=== PATIENT | male | born 1965 | race Caucasian/White ===

== ENCOUNTER 2024-10-17 11:56 | Emergency (ER) | payer OTHER, SELFPAY ==
[2024-10-17 12:11] VITALS: BP 127/87; PULSE 81; RESP 16; TEMP 36.4; O2SAT 94; BMI 24.3
--- NOTE | 2024-10-17 12:22 | PD.EDSOB ---
ED SOB =RME/HPI General Chief Complaint: Shortness of Breath/Dyspnea Stated Complaint: SOB Time Seen by Provider: 10/17/24 12:21 Arrival date/time: 10/17/24 11:56 RME / HPI RME / HPI Narrative: This section includes all my notes and documentations, including HPI, PE, and ED course. Leonard Saba MD HPI: 59-year-old male here with about 10-day history of worsening cough, productive cough, purulent sputum, and dyspnea. With subjective fever and chills and bodyaches. No known medical problems, including COPD or asthma. But has been smoking for 40 years. No other complaints. ROS: All negative except as documented in HPI. Physical Exam: General: Alert and oriented. Hacking cough noted. Eyes: Conjunctivae and lids clear. ENT: No nasal congestion. Pharynx normal. TM normal bilaterally. Neck: Supple. Heart: RRR. Lungs: Mild respiratory distress. Severely decreased air movement with diffuse rhonchi. Abdomen: Soft and nontender. Skin: Warm and dry. Neuro: Alert and oriented X 3. I reviewed all diagnostic test results. My interpretation of the EKG is sinus rhythm with no acute ST?T changes. My interpretation of the chest x-ray is infiltrates. Blood tests unremarkable, including negative troponin/D-dimer/BNP. COVID/influenza negative. At this point, diagnoses include pneumonia. Treatment here included Solu-Medrol and Atrovent milligram IV, MgSO4 2 gram IV, neb treatments, Benadryl 50 mg IV, Rocephin, and Zithromax. Significant improvement noted. Recommended a trial of treatment at home. Based on my best medical judgment, made decision no further evaluation or treatment indicated at this time. Patient understands and agrees to the discharge instructions customized and printed, see below. Discharge instructions from Dr. Saba: --No physical exertion for 3 days to help rest the lungs. ?No smoking or exposure to smoking or pets or dust or cold air. --Zithromax and cefdinir to kill the germs causing the pneumonia --Prednisone to help decrease the swelling in the airways. --Albuterol 2 puffs every 4-6 hours for 3 days to help keep the airways open. Then as needed for cough or shortness of breath. --See a private doctor on 10/19/2024 for recheck. Ask for help until you are completely better. --Seek immediate medical care with worsening or with any concerns. Leonard Saba MD Related Data Previous Rx's ?Medication ?Instructions ?Recorded albuterol sulfate 90 mcg/actuation 2 puff inhalation Q6H PRN 10/17/24 aerosol inhaler shortness of breath or wheezing #8.5 grams azithromycin 500 mg tablet 500 mg PO QDAY 3 days #3 tabs 10/17/24 (Zithromax TRI-LETTY) cefdinir 300 mg capsule 300 mg PO BID #14 caps 10/17/24 prednisone 20 mg tablet 40 mg PO BID 3 days #12 tabs 10/17/24 Allergies Allergy/AdvReac Type Severity Reaction Status Date / Time No Known Allergies Allergy Verified 10/17/24 11:59 Course Quality Measures none Orders Category Date Time Status Bedside COVID-19 Antigen Test NOW Care 10/17/24 12:22 Active Bedside Influenza A&B Antigen Test NOW Care 10/17/24 12:22 Completed EKG (ED ONLY) *Do not use* NOW Care 10/17/24 12:24 Completed Saline [Insert IV] NOW Care 10/17/24 12:22 Active EKG (ED Only) Stat Exams 10/17/24 12:24 Draft XR chest 1V portable Stat Exams 10/17/24 12:24 Completed ABG [Arterial Blood Gas] Stat Lab 10/17/24 13:26 Completed BNP [B-Type Natriuretic Peptide] Stat Lab 10/17/24 12:29 Completed CBC Stat Lab 10/17/24 12:29 Completed CMP [Comprehensive Metabolic Panel] Stat Lab 10/17/24 12:29 Completed D-Dimer Stat Lab 10/17/24 12:29 Completed Magnesium Stat Lab 10/17/24 12:29 Completed Troponin I Stat Lab 10/17/24 12:29 Completed Albuterol/Ipratr Rt Judith [Duoneb Rt Judith] Med 10/17/24 12:22 Discontinued 9 ml INH X1 ONE Azithromycin Po [Zithromax PO] Med 10/17/24 13:05 Discontinued 500 mg PO X1 ONE DiphenhydrAMINE INJ [Benadryl Inj] Med 10/17/24 12:22 Discontinued 50 mg IV X1 STA Magnesium Sulfate 2 GM Ivpb [Magnesium Sulfate Ivpb] Med 10/17/24 12:24 Discontinued 2 gm in 50 ml IV X1 Magnesium Sulfate 2 GM Ivpb [Magnesium Sulfate Ivpb] Med 10/17/24 13:45 Discontinued 2 gm in 50 ml IV X1 MethylPREDNISolone.* [SoluMEDROL Inj] Med 10/17/24 12:22 Discontinued 125 mg IVP X1 ONE cefTRIAXone [Rocephin] 1,000 mg Med 10/17/24 13:05 Discontinued SODIUM CHLORIDE 0.9% (Popper) [NS 0.9% (Popper)] 50 ml IV X1 Vital Signs Vital signs: Vital Signs Temperature 97.5 F 10/17/24 12:11 Pulse Rate 81 10/17/24 12:11 Respiratory Rate 16 10/17/24 12:11 Blood Pressure 127/87 H 10/17/24 12:11 Pulse Oximetry (%) 94 L 10/17/24 12:11 Oxygen Delivery Method Room Air 10/17/24 12:11 Shortness of Breath / Dyspnea Patient data External records reviewed:: None Clinical information provided by:: patient Social determinants that could affect healthcare access:: none Patient has the following chronic illnesses:: Smoker How is presenting disease/condition affected by chronic disease/condition?: exacerbated by Evaluation data The following diagnostics were reviewed and interpreted by me:: lab results, radiology exam(s) and EKG tracing(s) (My interpretation of the EKG: NSR (76 bpm) with no ST-T changes. Leonard Saba MD) Lab and/or radiology exams considered but not ordered:: None Interpretation Summary: Pneumonia Medications / Prescriptions Medications or Prescriptions considered but not ordered:: None Medication administrations:: Medication Administration History Discontinued Medications Albuterol/Ipratropium (Albuterol/Ipratropium (Duoneb) Rt Judith 3 Ml Nebu) 9 ml INH X1 ONE Stop: 10/17/24 12:23 Last Admin: 10/17/24 12:53 Dose: 9 ml Documented By: ZACKERY Azithromycin (Azithromycin 250 Mg Tablet) 500 mg PO X1 ONE Stop: 10/17/24 13:06 Last Admin: 10/17/24 13:33 Dose: 500 mg Documented By: SHALINI Diphenhydramine HCl (Diphenhydramine Inj 50 Mg/Ml Vial) 50 mg IV X1 STA Stop: 10/17/24 12:23 Last Admin: 10/17/24 13:34 Dose: 50 mg Documented By: SHALINI Magnesium Sulfate (Magnesium Sulfate Ivpb) 2 gm in 50 mls @ 25 mls/hr IV X1 ONE Stop: 10/17/24 14:23 Last Admin: 10/17/24 13:36 Dose: Not Given Documented By: SHALINI Non-Admin Reason: per dr saba to run over 30 min Ceftriaxone Sodium 1,000 mg/ (Sodium Chloride) 50 mls @ 100 mls/hr IV X1 ONE Stop: 10/17/24 13:34 Last Infusion: 10/17/24 14:22 Dose: Infused Documented By: Admin: 10/17/24 13:35 Dose: 100 mls/hr Documented By: SHALINI Magnesium Sulfate (Magnesium Sulfate Ivpb) 2 gm in 50 mls @ 100 mls/hr IV X1 ONE; Protocol Stop: 10/17/24 14:14 Last Admin: 10/17/24 14:21 Dose: 100 mls/hr Documented By: SHALINI Methylprednisolone Sodium Succinate (Methylprednisolone Sod Succ 62.5 Mg/Ml 2ml Vial) 125 mg IVP X1 ONE Stop: 10/17/24 12:23 Last Admin: 10/17/24 13:34 Dose: 125 mg Documented By: SHALINI Solu-Medrol and MgSO4 2 gram IV and neb treatments and Benadryl and Rocephin and Zithromax. Consultations Consultation(s) initiated? (list below): No Diagnosis Shortness of Breath Differential Diagnosis: acute exacerbation of chronic obstructive airways disease, congestive heart failure, community acquired pneumonia, asthma with exacerbation and pulmonary embolism Most likely diagnosis given after review of the tests above:: With significant improvement, there was no indication for admission. Admission Indicated Admission indicated?: not indicated Admission Request Was there a request for admission?: No Disposition Plan Disposition Plan: Discharge Discharge Attestation Discharge Attestation: The patient and all family members were given an opportunity to ask questions and understood the discharge instructions. Discharge instructions specifically effects, indications for sooner follow up or return to the emergency department, and the expected course of current diagnosis. Patient condition: Stable Discharge Plan Plan Patient Disposition: HOME (Self Care) Prescriptions/Referrals Prescriptions/Med Rec: New prednisone 20 mg tablet 40 mg PO BID 3 Days Qty: 12 0RF Taper: Prednisone Taper 20 mg DAILY for 2 Days and 0 Hour 10 mg DAILY for 2 Days and 0 Hour 5 mg DAILY for 7 Days and 0 Hour albuterol sulfate 90 mcg/actuation HFA aerosol inhaler 2 puff inhalation Q6H PRN (Reason: shortness of breath or wheezing) Qty: 8.5 0RF cefdinir 300 mg capsule 300 mg PO BID Qty: 14 0RF azithromycin [Zithromax TRI-LETTY] 500 mg tablet 500 mg PO QDAY 3 Days Qty: 3 0RF Referrals: No Primary/Family,Physician [Primary Care Provider] - In 1 week Problem List Clinical Impression: Community acquired pneumonia Patient/Caregiver Discharge Instructions Discharge Activity: activity as tolerated Education Materials: ED Pneumonia (Adult) Additional Instructions: Discharge instructions from Dr. Saba: --No physical exertion for 3 days to help rest the lungs. ?No smoking or exposure to smoking or pets or dust or cold air. --Zithromax and cefdinir to kill the germs causing the pneumonia --Prednisone to help decrease the swelling in the airways. --Albuterol 2 puffs every 4-6 hours for 3 days to help keep the airways open. Then as needed for cough or shortness of breath. --See a private doctor on 10/19/2024 for recheck. Ask for help until you are completely better. --Seek immediate medical care with worsening or with any concerns. Print Language: [place]i Stand Alone Forms: [employer] Award Info., Patient Portal Info Letter
--- NOTE | 2024-10-17 12:24 | XR_ITS ---
Examination: AP chest single view Technique one AP portable upright chest single view Exam date and time: October 17, 2024 at 12:45 PM Indications: Shortness of breath today. Findings: Severe diffuse interstitial disease throughout the lungs Mildly prominent hilar regions Normal heart size Prominent osteopenia Impression: Findings most consistent with severe pulmonary fibrosis Consider superimposed pneumonia at the lung bases
--- NOTE | 2024-10-17 12:24 | EKG_ITS ---
[facility] Test Date: 2024-10-17 Pat Name: MANNY CAGE Department: Room: - Gender: Male Chart Calculator: : 1965 Requested By: Leonard Jain Order Number: [id number] Reading MD: Leonard Jain Measurements Intervals [place] Rate: 76 P: 51 MN: 172 QRS: 39 QRSD: 93 T: 65 QT: 392 QTc: 441 Interpretive Statements SINUS RHYTHM No previous ECG available for comparison /store/S0/[id number].pdf
[2024-10-17 12:38] LABS: Basophils % (Auto) 0 % (0-2.5); Eosinophils # (Auto) 0.1 Thou/mm3 (0.0-0.5); Eosinophils % (Auto) 2 % (0-10); Hematocrit 41.3 % (41.0-53.0); Hemoglobin 14.3 g/dL (13.5-16.0); Immature Granulocytes % (Auto) 0 % (0-0); Immature Granulocytes Auto 0.03 Thou/mm3 (0.00-0.00); Lymphocytes # (Auto) 1.3 Thou/mm3 (1.0-4.8); Lymphocytes % (Auto) 19 % (10-50); Mean Corpuscular HGB Conc 34.6 g/dl (31.0-37.0); Mean Corpuscular Hemoglobin 27.7 pg (25.0-35.0); Mean Corpuscular Volume 80 fL (80-100); Monocytes # (Auto) 0.7 Thou/mm3 (0.0-0.8); Monocytes % (Auto) 10 % (0-12); Neutrophils # (Auto) 4.7 Thou/mm3 (1.8-7.7); Neutrophils % (Auto) 69 % (37-80); Nucleated Red Blood Cell % 0 /100 WBC (0); Platelet Count 285 Thou/mm3 (140-440); RDW Standard Deviation 38.2 fL (35.1-43.9); Red Blood Count 5.17 Miln/mm3 (4.50-5.90); White Blood Count 6.8 Thou/mm3 (3.8-10.6)
--- NOTE | 2024-10-17 12:51 | PC.NURSE ---
Patient came in to the ER with c/o shortness of breath which presented roughly yesterday morning. Pt has a cough that has been dry for the last 2 days. pt stated he had the flu for the past weeks and thought he was improving. Currently he is alert and oriented. able to walk under his own strength but dows get out breath on long distance ambulation.
[2024-10-17] MEDS: ALBUTEROL/IPRATROPIUM (Duoneb) RT SOL 3 ML NEBU 9 ML INH (12:53)
[2024-10-17 12:54] VITALS: PULSE 71; RESP 22; O2SAT 95
[2024-10-17 12:59] LABS: Alanine Aminotransferase 32 U/L (10-49); Albumin, Serum 3.8 gm/dL (3.5-5.0); Alkaline Phosphatase 71 U/L (46-116); Anion Gap 8 (7-16); Aspartate Amino Transferase 52 U/L (0-34); BUN/Creatinine Ratio 13 Ratio (12-20); Bilirubin,Total 0.7 mg/dL (0.3-1.2); Blood Urea Nitrogen 10 mg/dL (9-23); Calcium 9.3 mg/dL (8.3-10.6); Calcium (Corrected) 9.5 mg/dL (8.5-10.1); Chloride 105 mMol/L (98-107); Creatinine (Component) 0.8 mg/dL (0.6-1.3); Estimated Creatinine Clearance 101.9 mL/min (>60); Globulin 3.8 gm/dL (2.3-3.5); Glucose 112 mg/dL (74-106); Magnesium 1.9 mg/dL (1.6-2.6); Osmolality,Calculated 273 (275-295); Potassium 3.7 mMol/L (3.4-5.1); Sodium 137 mMol/L (136-145); Total Protein 7.6 gm/dL (5.7-8.2); Troponin I < 0.020 ng/mL (0.0-0.045); eGFR > 60 See Note
[2024-10-17 13:09] LABS: B-Type Natriuretic Peptide 71 pg/mL (0-100)
[2024-10-17 13:28] LABS: D-Dimer 552 ng/mL (<600)
[2024-10-17 13:31] LABS: Base Excess 1 (-3-3); HCO3 24 mEq/L (20-26); Inspired Oxygen, FIO2 21 %; O2 Saturation 99 % (91-98); PCO2 33 mmHg (32.0-48.0); PO2 110 mmHg (83-108); pH, Arterial 7.48 (7.35-7.45)
[2024-10-17 13:33] LABS: Allen Test Not Performed; Puncture Site Left Radial
[2024-10-17] MEDS: AZITHROMYCIN 250 MG TABLET 500 MG PO (13:33)
[2024-10-17] MEDS: MethylPREDNISolone SOD SUCC 62.5 MG/ML 2ML VIAL 125 MG IVP (13:34)
[2024-10-17] MEDS: DiphenhydrAMINE INJ 50 MG/ML VIAL IV (13:34)
[2024-10-17] MEDS: cefTRIAXone 1,000 MG in SODIUM CHLORIDE 0.9% (Popper) 50 ML 100 MG IV (13:35)
[2024-10-17] MEDS: Magnesium Sulfate 2 GM Ivpb 2 GM/50 ML BAG IV (14:21)
[2024-10-17 15:22] VITALS: BP 110/78; PULSE 73; RESP 22; TEMP 36.2; O2SAT 94
== END 2024-10-17 15:24 | disposition home or self-care (01) ==
PROVIDERS: Emergency Provider Emergency Medicine
DX: J18.9 Pneumonia, unspecified organism (principal); F17.200 Nicotine dependence, unspecified, uncomplicated
CPT/HCPCS: 36415; 36600; 71045; 80053; 82803; 83735; 83880; 84484; 85025; 85379; 87400; 87811; 93005; 94640; 96365; 96367; 96375; 99284; A9270; J0696; J1200; J2919; J3475; J7050